=== PATIENT | male | born 1975 | race Caucasian/White ===

== ENCOUNTER 2024-02-17 06:15 | Day surgery (SDC) | payer OTHER, SELFPAY | END 2024-02-17 13:37 | disposition home or self-care (01) | LOC: GI 06:15 | PROVIDERS: ATTENDING PHYSICIAN Internal Medicine Gastroenterology | DX: Z12.11 Encounter for screening for malignant neoplasm of colon (principal); D12.4 Benign neoplasm of descending colon; K57.30 Diverticulosis of large intestine without perforation or abscess without bleeding; K64.8 Other hemorrhoids; K22.89 Other specified disease of esophagus; K29.70 Gastritis, unspecified, without bleeding; K21.00 Gastro-esophageal reflux disease with esophagitis, without bleeding; R12 Heartburn | CPT/HCPCS: 45385; 43239; 88305; 88342 ==